=== PATIENT | male | born 1970 | race Caucasian/White ===

== ENCOUNTER 2018-04-26 13:19 | Emergency (ER) | payer BC, SELFPAY ==
[2018-04-26] MEDS: KETOROLAC 60 MG/2 ML VIAL 30 MG IV (13:42)
[2018-04-26] MEDS: ONDANSETRON 4 MG/2 ML INJ IV (13:42)
[2018-04-26 13:50] VITALS: BP 133/88; PULSE 63; RESP 15; TEMP 36.4; O2SAT 100
--- NOTE | 2018-04-26 13:50 | PC.NURSE ---
pt reports with hx of kidney stones and retention, today left flank pain onset at 930 am with nausea and dry heaves, hot/cold and restless, now pt moved to left groin area. denies fever at home.
--- NOTE | 2018-04-26 13:51 | PC.NURSE ---
by debbie anand
--- NOTE | 2018-04-26 13:52 | DI.US.S_ITS ---
PROCEDURE: US RENAL COMPLETE INDICATIONS: LEFT FLANK PAIN, HISTORY KIDNEY STONES TECHNIQUE: Real-time scanning was performed of the kidneys and bladder, with image documentation. COMPARISON: None. FINDINGS: Kidneys: Kidneys are normal in size. Right kidney measures 11.3 cm long; left kidney measures 12.2 cm long. Right renal cortical thickness is 1.3 cm; left renal cortical thickness is 1.3 cm. Renal cortical echotexture is normal. Left hydronephrosis No suspicious solid mass lesions. Bilateral simple appearing renal cysts measuring up to 1.8 cm on the right and 2.7 cm on the left. No definite echogenic shadowing calculus. There is mild prominence of the left ureter measuring 4-6 mm Bladder: Pre-void bladder volume is 82 mL. Post-void residual is 28 mL. Pre-void images demonstrate no intraluminal masses or stones. 4 mm focus of punctate shadowing foci at the base of the bladder raises possibility of bladder calculi. On pre-void images, both of the ureteral jets are noted with color Doppler interrogation. (Of note, ureteral jets may not be detectable in up to 25% of cases due to insufficient differences in specific gravity between ureteral and bladder urine). Miscellaneous: No free pelvic fluid. IMPRESSION: Possible bladder calculi/echogenic debris. Mild left hydronephrosis. Mild prominence of the left ureter Bilateral simple appearing renal cysts. Dictated by: Carlos Shafer M.D. on 04/26/2018 at 16:02 Approved by: Carlos Shafer M.D. on 04/26/2018 at 16:05
--- NOTE | 2018-04-26 13:58 | ED.ABDPAIN ---
HPI - Abdominal Pain General Chief Complaint: Abdominal Pain Stated Complaint: kidney stone Time Seen by Provider: 04/26/18 13:34 Source: patient and family () Mode of arrival: ambulatory Limitations: no limitations History of Present Illness HPI narrative: This is a 47-year-old male who comes to the emergency department with complaint of left flank pain. Patient states it started this morning, continued throughout the day and finally became so painful he could not continue at home. Patient has had a history of kidney stones in the past. He was seen in 2008, passed the kidney stone and had urinalysis showing oxalate stones with urologist. Patient states he has had 3 other episodes been able to pass them at home after drinking lots of fluid. Today he tried drinking a lot but he threw up most of the water. He states the pain started as left flank but is now sort of radiating towards the left lower abdomen. Patient states he has not had fevers but breaks out sweats with the pain is very strong. He feels like he needs to urinate but has no urinated so far today. Patient states the feeling or need to urinate comes on when he has pain. Not having any issues with bowel movements such as constipation or diarrhea. He takes atorvastatin daily but denies medical issues. Has not had any prior surgery. Denies any allergies. Related Data Previous Rx's Medication Instructions Recorded hydrocodone-acetaminophen [[place]] 1 tab PO Q6H PRN #10 tab 04/26/18 tamsulosin [Flomax] 0.4 mg PO DAILY #5 cap 04/26/18 Allergies Allergy/AdvReac Type Severity Reaction Status Date / Time No Known Drug Allergies Allergy Verified 04/26/18 13:25 Review of Systems Review of Systems ROS Unobtainable: All systems reviewed & are unremarkable except as noted in HPI and below Constitutional Reports chills, Reports excessive sweating (with pain) and Denies fever(s) Gastrointestinal Gastrointestinal: Reports abdominal pain (lower left now, started in flank), Denies change in bowel habits, Denies diarrhea, Reports nausea and Reports vomiting Genitourinary Denies hematuria, Reports difficulty urinating, Denies dysuria, Reports flank pain (left), Denies scrotal swelling, Denies testicular mass, Denies testicular pain, Denies urinary frequency, Denies urinary incontinence and Denies urinary urgency Endocrine Reports excessive sweating (with pain) PFSH Medical History Dyslipidemia (Acute) Social History marital status: Exam Narrative Exam Narrative: GENERAL: Alert and oriented x three, this is well-nourished, well-appearing male in moderate distress HEENT: Head normocephalic, atraumatic, EOMI, pupils reactive, face symmetric, moist mucous membranes NECK: Supple, full range of motion CARDIOVASCULAR: Regular rate and rhythm without murmurs, rubs or gallops. RESPIRATORY: Breath sounds equal bilaterally, no wheezes rales or rhonchi. ABDOMEN: Soft, nontender. Normoactive bowel sounds all 4 quadrants. No guarding or rebound, rigidity, no mass : No CVA tenderness EXTREMITIES: Normal range of motion, no clubbing or edema. Neurovascularly intact NEUROLOGICAL: Cranial nerves II through XII grossly intact. Moving all extremities SKIN: Warm, dry, no petechiae, no rashes or lesions. Initial Vital Signs Initial Vital Signs: Vital Signs Temperature 97.5 F L 04/26/18 13:50 Pulse Rate 63 04/26/18 13:50 Respiratory Rate 15 04/26/18 13:50 Blood Pressure 133/88 04/26/18 13:50 Pulse Oximetry 100 04/26/18 13:50 Course Orders Ordered: ED Orders 04/26/18 13:52 US renal complete Stat 04/26/18 15:10 Basic Metabolic Panel Stat Complete Blood Count AUTO DIFF Stat UA Complete [Urinalysis and Microscopic] Stat Urine Culture Stat Discontinued Medications Sodium Chloride (Normal Saline 0.9%) 1,000 mls @ 1,000 mls/hr IV BOLUS ONE Stop: 04/26/18 14:56 Last Infusion: 04/26/18 16:14 Dose: 0 mls/hr Admin: 04/26/18 14:21 Dose: 1,000 mls/hr Ketorolac Tromethamine (Toradol) 30 mg IV NOW ONE Stop: 04/26/18 13:37 Last Admin: 04/26/18 13:42 Dose: 30 mg Morphine Sulfate (Morphine) 4 mg IV NOW ONE Stop: 04/26/18 14:16 Last Admin: 04/26/18 14:21 Dose: 4 mg Ondansetron HCl (Zofran) 4 mg IV NOW ONE Stop: 04/26/18 13:37 Last Admin: 04/26/18 13:42 Dose: 4 mg Tamsulosin HCl (Flomax) 0.4 mg PO NOW ONE Stop: 04/26/18 13:58 Last Admin: 04/26/18 15:59 Dose: 0.4 mg Vital Signs - 8 hr 04/26/18 13:50 04/26/18 15:00 04/26/18 15:56 Temperature 97.5 F L Pulse Rate 63 82 72 Respiratory Rate 15 16 Blood Pressure [Left Arm] 133/88 114/73 114/73 Pulse Oximetry 100 99 98 04/26/18 16:37 Temperature Pulse Rate 88 Respiratory Rate 18 Blood Pressure [Left Arm] 127/72 Pulse Oximetry 98 MDM - Abdominal Pain Lab Data Attestation: I reviewed the patient's lab results. Result diagrams: 04/26/18 15:10 04/26/18 15:10 Lab Results 04/26/18 04/26/18 04/26/18 Range/Units 15:10 15:10 15:10 WBC 7.8 (4.5-11.0) X10^3/uL RBC 4.58 (4.5-5.9) X10^6/uL Hgb 13.6 (13.5-17.5) g/dL Hct 39.2 L (41-53) % MCV 85.5 (80-100) fL MCH 29.6 (26-34) PG MCHC 34.7 (30-36) % RDW 12.8 (11.6-14.8) % Plt Count 220 (150-400) X10^3/uL Neut % (Auto) 92.4 H (50-75) % Lymph % (Auto) 4.8 L (25-40) % [place] % (Auto) 2.4 L (3-14) % Eos % (Auto) 0.1 L (2-4) % Baso % (Auto) 0.3 (0-2) % Neut # (Auto) 7200 H (0474-8386) /uL Lymph # (Auto) 400 L (7085-7999) /uL [place] # (Auto) 200 (0-900) /uL Eos # (Auto) 0 (0-450) /uL Baso # (Auto) 0 (0-100) /uL Sodium 133 L (137-145) mmol/L Potassium 4.1 (3.4-5.1) mmol/L Chloride 96 L (98-107) mmol/L Carbon Dioxide 28 (22-32) mmol/L BUN 17 (9-20) mg/dL Creatinine 0.90 (0.66-1.25) mg/dL Estimated GFR > 60.0 (>60) mL/min BUN/Creatinine Ratio 18.9 (6-22) Glucose 125 H (70-100) mg/dL Calcium 8.5 (8.4-10.2) mg/dL Urine Color Yellow Urine Appearance Cloudy Urine pH 6.5 (4.5-8.0) Ur Specific [place] 1.025 (1.000-1.035) Urine Protein 2+ H (Negative) Urine Glucose (UA) Negative (Negative) g/dL Urine Ketones 1+ H (NEGATIVE) Urine Occult Blood 3+ H (Negative) Urine Nitrate Negative (Negative) Urine Bilirubin Negative (NEGATIVE) Urine Urobilinogen 0.2 (0.2) E.U./dL Ur Leukocyte Esterase Trace H (NEGATIVE) Urine RBC 30-100/hpf H (0-5/HPF) Urine WBC 5-10/hpf H (0-5/HPF) Ur Squamous Epith Cells 0-1 /hpf Calcium Oxalate Crystal Few H (None) Amorphous Sediment 1+ Urine Bacteria Few (2-10) H (None) Urine Mucus 2+ H (Negative) Ur Culture Indicated? Specimen cultured Imaging Data renal US: Radiologist's impression: [place] [address] Ultrasound Report Signed Patient: Leonor Bernal#: [id number] : 1970Acct:[id number] Age/Sex: 47 / MDate of Service: 04/26/18 Loc: ED Accession Number: [id number] Procedure: US renal complete Ordering Provider: Sahra Mendes D.O. PROCEDURE: US RENAL COMPLETE INDICATIONS: LEFT FLANK PAIN, HISTORY KIDNEY STONES TECHNIQUE: Real-time scanning was performed of the kidneys and bladder, with image documentation. COMPARISON: None. FINDINGS: Kidneys: Kidneys are normal in size. Right kidney measures 11.3 cm long; left kidney measures 12.2 cm long. Right renal cortical thickness is 1.3 cm; left renal cortical thickness is 1.3 cm. Renal cortical echotexture is normal. Left hydronephrosis No suspicious solid mass lesions. Bilateral simple appearing renal cysts measuring up to 1.8 cm on the right and 2.7 cm on the left. No definite echogenic shadowing calculus. There is mild prominence of the left ureter measuring 4-6 mm Bladder: Pre-void bladder volume is 82 mL. Post-void residual is 28 mL. Pre-void images demonstrate no intraluminal masses or stones. 4 mm focus of punctate shadowing foci at the base of the bladder raises possibility of bladder calculi. On pre-void images, both of the ureteral jets are noted with color Doppler interrogation. (Of note, ureteral jets may not be detectable in up to 25% of cases due to insufficient differences in specific gravity between ureteral and bladder urine). Miscellaneous: No free pelvic fluid. IMPRESSION: Possible bladder calculi/echogenic debris. Mild left hydronephrosis. Mild prominence of the left ureter Bilateral simple appearing renal cysts. Dictated by: Carlos Shafer M.D. on 04/26/2018 at 16:02 Approved by: Carlos Shafer M.D. on 04/26/2018 at 16:05 [facility] Narrative Medical decision making narrative: Patient is feeling better after Toradol. He has a significant history for kidney stones. States that he often is able to straighten them out of his urine when he has had them. Patient and I discussed doing ultrasound to avoid exposure to radiation, some baseline labs. Patient pain was returning given Morphine with improvement. Labs did not show any renal dysfunction, electrolytes or elevated white count. Patient has some leukocyte esterase and blood in his urine along with calcium oxalate crystals. Patient has not been having any urinary frequency or symptoms consistent with UTI. Discussed with patient and will hold antibiotics. Continue Flomax, follow-up with PCP or Urology per patient preference. He has seen Urology and telling him in the past. Plan for medication for pain control. Discussed with patient has some mild hydro, but no clear signs of obstruction. Discharge Plan Departure Patient Disposition: Home Clinical Impression: Kidney stone Discharge Date/Time: 04/26/18 16:39 Interventions: ED Discharge Assessment Last Done: 04/26/18 16:39 Instructions: DI for Kidney Stones Activity Restrictions/Additional Instructions: Follow up with primary care and/or Urology in the next 3-5 days for recheck if her symptoms are not completely gone. Continue Flomax once daily until gone. Continue ibuprofen 600 mg every 6 hr as needed for pain. Retake prescribed medication for breakthrough pain as needed, this medication can make you sleepy so do not drive, perform hazards activities or make any major decisions while taking it. Return to the emergency department for fevers greater than 100.4, worsening flank or abdominal pain, persistent vomiting black or bloody stools, inability to urinate, large clots in her urine or other new or concerning symptoms. Prescriptions: New hydrocodone-acetaminophen [[place]] 5-325 mg tablet 1 tab PO Q6H PRN (Reason: pain) Qty: 10 RF: 0 tamsulosin [Flomax] 0.4 mg capsule 0.4 mg PO DAILY Qty: 5 RF: 0 Referrals: Lazaro Reeder MD [Primary Care Provider] -
--- NOTE | 2018-04-26 14:03 | ED_ITS ---
HPI - Abdominal Pain General Chief Complaint: Abdominal Pain Stated Complaint: kidney stone Time Seen by Provider: 04/26/18 13:34 Source: patient and family () Mode of arrival: ambulatory Limitations: no limitations History of Present Illness HPI narrative: This is a 47-year-old male who comes to the emergency department with complaint of left flank pain. Patient states it started this morning, continued throughout the day and finally became so painful he could not continue at home. Patient has had a history of kidney stones in the past. He was seen in 2008, passed the kidney stone and had urinalysis showing oxalate stones with urologist. Patient states he has had 3 other episodes been able to pass them at home after drinking lots of fluid. Today he tried drinking a lot but he threw up most of the water. He states the pain started as left flank but is now sort of radiating towards the left lower abdomen. Patient states he has not had fevers but breaks out sweats with the pain is very strong. He feels like he needs to urinate but has no urinated so far today. Patient states the feeling or need to urinate comes on when he has pain. Not having any issues with bowel movements such as constipation or diarrhea. He takes atorvastatin daily but denies medical issues. Has not had any prior surgery. Denies any allergies. Related Data Previous Rx's Medication Instructions Recorded hydrocodone-acetaminophen [[place]] 1 tab PO Q6H PRN #10 tab 04/26/18 tamsulosin [Flomax] 0.4 mg PO DAILY #5 cap 04/26/18 Allergies Allergy/AdvReac Type Severity Reaction Status Date / Time No Known Drug Allergies Allergy Verified 04/26/18 13:25 Review of Systems Review of Systems ROS Unobtainable: All systems reviewed & are unremarkable except as noted in HPI and below Constitutional Reports chills, Reports excessive sweating (with pain) and Denies fever(s) Gastrointestinal Gastrointestinal: Reports abdominal pain (lower left now, started in flank), Denies change in bowel habits, Denies diarrhea, Reports nausea and Reports vomiting Genitourinary Denies hematuria, Reports difficulty urinating, Denies dysuria, Reports flank pain (left), Denies scrotal swelling, Denies testicular mass, Denies testicular pain, Denies urinary frequency, Denies urinary incontinence and Denies urinary u rgency Endocrine Reports excessive sweating (with pain) PFSH Medical History Dyslipidemia (Acute) Social History marital status: Exam Narrative Exam Narrative: GENERAL: Alert and oriented x three, this is well-nourished, well-appearing male in moderate distress HEENT: Head normocephalic, atraumatic, EOMI, pupils reactive, face symmetric, moist mucous membranes NECK: Supple, full range of motion CARDIOVASCULAR: Regular rate and rhythm without murmurs, rubs or gallops. RESPIRATORY: Breath sounds equal bilaterally, no wheezes rales or rhonchi. ABDOMEN: Soft, nontender. Normoactive bowel sounds all 4 quadrants. No guarding or rebound, rigidity, no mass : No CVA tenderness EXTREMITIES: Normal range of motion, no clubbing or edema. Neurovascularly intact NEUROLOGICAL: Cranial nerves II through XII grossly intact. Moving all ex tremities SKIN: Warm, dry, no petechiae, no rashes or lesions. Initial Vital Signs Initial Vital Signs: Vital Signs Temperature 97.5 F L 04/26/18 13:50 Pulse Rate 63 04/26/18 13:50 Respiratory Rate 15 04/26/18 13:50 Blood Pressure 133/88 04/26/18 13:50 Pulse Oximetry 100 04/26/18 13:50 Course Orders Ordered: ED Orders 04/26/18 13:52 US renal complete Stat 04/26/18 15:10 Basic Metabolic Panel Stat Complete Blood Count AUTO DIFF Stat UA Complete [Urinalysis and Microscopic] Stat Urine Culture Stat Discontinued Medications Sodium Chloride (Normal Saline 0.9%) 1,000 mls @ 1,000 mls/hr IV BOLUS ONE Stop: 04/26/18 14:56 Last Infusion: 04/26/18 16:14 Dose: 0 mls/hr Admin: 04/26/18 14:21 Dose: 1,000 mls/hr Ketorolac Tromethamine (Toradol) 30 mg IV NOW ONE Stop: 04/26/18 13:37 Last Admin: 04/26/18 13:42 Dose: 30 mg Morphine Sulfate (Morphine) 4 mg IV NOW ONE Stop: 04/26/18 14:16 Last Admin: 04/26/18 14:21 Dose: 4 mg Ondansetron HCl (Zofran) 4 mg IV NOW ONE Stop: 04/26/18 13:37 Last Admin: 04/26/18 13:42 Dose: 4 mg Tamsulosin HCl (Flomax) 0.4 mg PO NOW ONE Stop: 04/26/18 13:58 Last Admin: 04/26/18 15:59 Dose: 0.4 mg Vital Signs - 8 hr 04/26/18 13:50 04/26/18 15:00 04/26/18 15:56 Temperature 97.5 F L Pulse Rate 63 82 72 Respiratory Rate 15 16 Blood Pressure [Left Arm] 133/88 114/73 114/73 Pulse Oximetry 100 99 98 04/26/18 16:37 Temperature Pulse Rate 88 Respiratory Rate 18 Blood Pressure [Left Arm] 127/72 Pulse Oximetry 98 MDM - Abdominal Pain Lab Data Attestation: I reviewed the patient's lab results. Result diagrams: 04/26/18 15:10 04/26/18 15:10 Lab Results 04/26/18 04/26/18 04/26/18 Range/Units 15:10 15:10 15:10 WBC 7.8 (4.5-11.0) X10^3/uL RBC 4.58 (4.5-5.9) X10^6/uL Hgb 13.6 (13.5-17.5) g/dL Hct 39.2 L (41-53) % MCV 85.5 (80-100) fL MCH 29.6 (26-34) PG MCHC 34.7 (30-36) % RDW 12.8 (11.6-14.8) % Plt Count 220 (150-400) X10^3/uL Neut % (Auto) 92.4 H (50-75) % Lymph % (Auto) 4.8 L (25-40) % [place] % (Auto) 2.4 L (3-14) % Eos % (Auto) 0.1 L (2-4) % Baso % (Auto) 0.3 (0-2) % Neut # (Auto) 7200 H (8572-7747) /uL Lymph # (Auto) 400 L (7105-3648) /uL [place] # (Auto) 200 (0-900) /uL Eos # (Auto) 0 (0-450) /uL Baso # (Auto) 0 (0-100) /uL Sodium 133 L (137-145) mmol/L Potassium 4.1 (3.4-5.1) mmol/L Chloride 96 L (98-107) mmol/L Carbon Dioxide 28 (22-32) mmol/L BUN 17 (9-20) mg/dL Creatinine 0.90 (0.66-1.25) mg/dL Estimated GFR > 60.0 (>60) mL/min BUN/Creatinine Ratio 18.9 (6-22) Glucose 125 H (70-100) mg/dL Calcium 8.5 (8.4-10.2) mg/dL Urine Color Yellow Urine Appearance Cloudy Urine pH 6.5 (4.5-8.0) Ur Specific [place] 1.025 (1.000-1.035) Urine Protein 2+ H (Negative) Urine Glucose (UA) Negative (Negative) g/dL Urine Ketones 1+ H (NEGATIVE) Urine Occult Blood 3+ H (Negative) Urine Nitrate Negative (Negative) Urine Bilirubin Negative (NEGATIVE) Urine Urobilinogen 0.2 (0.2) E.U./dL Ur Leukocyte Esterase Trace H (NEGATIVE) Urine RBC 30-100/hpf H (0-5/HPF) Urine WBC 5-10/hpf H (0-5/HPF) Ur Squamous Epith Cells 0-1 /hpf Calcium Oxalate Crystal Few H (None) Amorphous Sediment 1+ Urine Bacteria Few (2-10) H (None) Urine Mucus 2+ H (Negative) Ur Culture Indicated? Specimen cultured Imaging Data renal US: Radiologist's impression: [place] [address] Ultrasound Report Signed Patient: Leonor Bernal#: [id number] : 1970Acct:[id number] Age/Sex: 47 / MDate of Service: 04/26/18 Loc: ED Accession Number: [id number] Procedure: US renal complete Ordering Provider: Sahra Mendes D.O. PROCEDURE: US RENAL COMPLETE INDICATIONS: LEFT FLANK PAIN, HISTORY KIDNEY STONES TECHNIQUE: Real-time scanning was performed of the kidneys and bladder, with image documentation. COMPARISON: None. FINDINGS: Kidneys: Kidneys are normal in size. Right kidney measures 11.3 cm long; left kidney measures 12.2 cm long. Right renal cortical thickness is 1.3 cm; left renal cortical thickness is 1.3 cm. Renal cortical echotexture is normal. Left hydronephrosis No suspicious solid mass lesions. Bilateral simple appearing renal cysts measuring up to 1.8 cm on the right and 2.7 cm on the left. No definite echogenic shadowing calculus. There is mild prominence of the left ureter measuring 4-6 mm Bladder: Pre-void bladder volume is 82 mL. Post-void residual is 28 mL. Pre- void images demonstrate no intraluminal masses or stones. 4 mm focus of punctate shadowing foci at the base of the bladder raises possibility of bladder calculi. On pre-void images, both of the ureteral jets are noted with color Doppler in terrogation. (Of note, ureteral jets may not be detectable in up to 25% of cases due to insufficient differences in specific gravity between ureteral and bladder urine). Miscellaneous: No free pelvic fluid. IMPRESSION: Possible bladder calculi/echogenic debris. Mild left hydronephrosis. Mild prominence of the left ureter Bilateral simple appearing renal cysts. Dictated by: Carlos Shafer M.D. on 04/26/2018 at 16:02 Approved by: Carlos Shafer M.D. on 04/26/2018 at 16:05 [facility] Narrative Medical decision making narrative: Patient is feeling better after Toradol. He has a significant history for kidney stones. States that he often is able to straighten them out of his urine when he has had them. Patient and I discussed doing ultrasound to avoid exposure to radiation, some baseline labs. Patient pain was returning given Morphine with improvement. Labs did not show any renal dysfunction, electrolytes or elevated white count. Patient has some leukocyte esterase and blood in his urine along with calcium oxalate crystals. Patient has not been having any urinary frequency or symptoms consistent with UTI. Discussed with patient and will hold antibiotics. Continue Flomax, follow-up with PCP or Urology per patient preference. He has seen Urology and telling him in the past. Plan for medication for pain control. Discussed with patient has some mild hydro, but no clear signs of obstruction. Discharge Plan Departure Patient Disposition: Home Clinical Impression: Kidney stone Discharge Date/Time: 04/26/18 16:39 Interventions: ED Discharge Assessment Last Done: 04/26/18 16:39 Instructions: DI for Kidney Stones Activity Restrictions/Additional Instructions: Follow up with primary care and/or Urology in the next 3-5 days for recheck if her symptoms are not completely gone. Continue Flomax once daily until gone. Continue ibuprofen 600 mg every 6 hr as needed for pain. Retake prescribed medication for breakthrough pain as needed, this medication can make you sleepy so do not drive, perform hazards activities or make any major decisions while taking it. Return to the emergency department for fevers greater than 100.4, worsening flank or abdominal pain, persistent vomiting black or bloody stools, inability to urinate, large clots in her urine or other new or concerning symptoms. Prescriptions: New hydrocodone-acetaminophen [[place]] 5-325 mg tablet 1 tab PO Q6H PRN (Reason: pain) Qty: 10 RF: 0 tamsulosin [Flomax] 0.4 mg capsule 0.4 mg PO DAILY Qty: 5 RF: 0 Referrals: Lazaro Reeder MD [Primary Care Provider] -
[2018-04-26] MEDS: SODIUM CHLORIDE 0.9% 1,000 ML 1000 ML IV (14:21)
[2018-04-26] MEDS: MORPHINE 4 MG/ML INJ IV (14:21)
[2018-04-26 15:00] VITALS: BP 114/73; PULSE 82; O2SAT 99
[2018-04-26 15:19] LABS: Add Manual Diff / Slide Review NO; Basophils Absolute Auto 0 /uL (0-100); Basophils Percent Auto 0.3 % (0-2); Eosinophils Absolute Auto 0 /uL (0-450); Eosinophils Percent Auto 0.1 % (2-4); Hematocrit 39.2 % (41-53); Hemoglobin 13.6 g/dL (13.5-17.5); Lymphocytes Absolute Auto 400 /uL (1100-4500); Lymphocytes Percent Auto 4.8 % (25-40); Mean Corpuscular HGB Conc 34.7 % (30-36); Mean Corpuscular Hemoglobin 29.6 PG (26-34); Mean Corpuscular Volume 85.5 fL (80-100); Monocytes Absolute Auto 200 /uL (0-900); Monocytes Percent Auto 2.4 % (3-14); Neutrophils Absolute Auto 7200 /uL (1500-7000); Neutrophils Percent Auto 92.4 % (50-75); Platelet Count 220 X10^3/uL (150-400); Red Blood Cell Count 4.58 X10^6/uL (4.5-5.9); Red Cell Distribution Width 12.8 % (11.6-14.8); White Blood Cell Count 7.8 X10^3/uL (4.5-11.0)
[2018-04-26 15:21] LABS: Appearance Urine UA CLOUDY; Bilirubin Urine UA NEGATIVE (NEGATIVE); Color Urine UA YELLOW; Glucose Urine UA NEGATIVE (Negative); Ketones Urine UA 1+ (NEGATIVE); Leukocyte Esterase Urine UA TRACE (NEGATIVE); Nitrite Urine UA NEGATIVE (Negative); Occult Blood Urine UA 3+ (Negative); Protein Urine UA 2+ (Negative); Specific Gravity Urine UA 1.025 (1.000-1.035); Urobilinogen Urine UA 0.2 E.U./dL (0.2); pH Urine UA 6.5 (4.5-8.0)
[2018-04-26 15:29] LABS: BUN Creatinine Ratio 18.9 (6-22); Blood Urea Nitrogen 17 mg/dL (9-20); Calcium 8.5 mg/dL (8.4-10.2); Carbon Dioxide 28 mmol/L (22-32); Chloride 96 mmol/L (98-107); Estimated Glomerular Filt Rate > 60.0 mL/min (>60); Glucose 125 mg/dL (70-100); HEMOLYSIS < 15 (0-50); Potassium 4.1 mmol/L (3.4-5.1); Sodium 133 mmol/L (137-145)
[2018-04-26 15:31] LABS: Calcium Oxalate Crystals Urine Few; RBC Urine 30-100/HPF (0-5/HPF); Squamous Epithelial Cell Urine 0-1 /HPF; WBC Urine 5-10/HPF (0-5/HPF)
[2018-04-26 15:32] LABS: Amorphous Sediment Urine 1+; Bacteria Urine Few (2-10); Culture Indicated Urine Specimen Cultured; Mucus Urine 2+ (Negative)
[2018-04-26 15:56] VITALS: BP 114/73; PULSE 72; RESP 16; O2SAT 98
[2018-04-26] MEDS: TAMSULOSIN 0.4 MG CAPSULE PO (15:59)
[2018-04-26 16:37] VITALS: BP 127/72; PULSE 88; RESP 18; O2SAT 98
== END 2018-04-26 16:41 | disposition home or self-care (01) ==
PROVIDERS: Emergency Provider Emergency Medicine; PCP Family Medicine
DX: N20.0 Calculus of kidney (principal)
CPT/HCPCS: 36415; 76770; 80048; 81001; 85025; 87086; 96361; 96374; 96375; 99283; 99284; J1885; J2270; J2405